=== PATIENT | male | born 1970 | race Caucasian/White ===

== ENCOUNTER → 2018-09-11 | Outpatient (CLI) | payer OTHER ==
[~2018-09-11] MED LIST: ASPI-496 PO; ROSU20TA PO; SUMA100T4 PO
== END | disposition home or self-care (01) ==
LOC: STAR 15:09
PROVIDERS: ATTEND Thoracic Surgery (Cardiothoracic Vascular Surgery)
DX: Z02.9 Encounter for administrative examinations, unspecified (principal)

== ENCOUNTER 2018-09-27 05:53 | Day surgery (SDC) | payer OTHER ==
[~2018-09-27] VITALS: Ht 182.9 cm; Wt 100.0 kg
[2018-09-27 06:38] VITALS: BP 138/93
[2018-09-27] MEDS ORDERED: LACTATED RINGERS 1,000 ML IV SCH ×2 (06:39→08:41)
[2018-09-27] MEDS ORDERED: BUPIVACAINE/PF-EPI 0.5% 1:200K ONE (06:47)
[2018-09-27] MEDS ORDERED: SCOPOLAMINE PATCH, 1.5MG PATCH.TD72 TD ONE (07:00)
[2018-09-27] MEDS ORDERED: ACETAMINOPHEN 500 MG TABLET PO ONE (07:00)
[2018-09-27] MEDS ORDERED: DIAZEPAM 5 MG TABLET PO ONE (07:00)
[2018-09-27] MEDS ORDERED: MIDAZOLAM 1 MG/ML, 2ML ONE (07:06)
[2018-09-27] MEDS ORDERED: FENTANYL PF 250 MCG/5ML ONE (07:06)
[2018-09-27] MEDS ORDERED: SUCCINYLCHOLINE 20 MG/ML, 10ML ONE (07:10)
[2018-09-27] MEDS ORDERED: LIDOCAINE-MPF 2% ,5ML ONE (07:12)
[2018-09-27] MEDS ORDERED: PROPOFOL 10 MG/ML, 20ML ONE ×2 (07:12→07:28)
[2018-09-27] MEDS ORDERED: CEFAZOLIN 1,000 MG ONE (07:14)
[2018-09-27] MEDS ORDERED: ONDANSETRON 2MG/ML, 2ML ONE ×2 (07:15→07:28)
[2018-09-27] MEDS ORDERED: DEXAMETHASONE 4 MG/ML, 5ML ONE (07:15)
[2018-09-27] MEDS ORDERED: KETOROLAC 30 MG/1 ML ONE (07:28)
[2018-09-27] MEDS ORDERED: ROCURONIUM 10 MG/ML,10ML ONE (07:28)
[2018-09-27] MEDS ORDERED: PROMETHAZINE 12.5 MG SUPP PR PRN (08:00)
[2018-09-27] MEDS ORDERED: HYDROmorphone 2 MG/ML, 1ML IVPush PRN ×2 (08:00→09:00)
[2018-09-27] MEDS ORDERED: ONDANSETRON ODT 8 MG PO PRN (08:00)
[2018-09-27] MEDS ORDERED: MIDAZOLAM 1 MG/ML, 2ML IV PRN (08:00)
[2018-09-27] MEDS ORDERED: ONDANSETRON 2MG/ML, 2ML IV PRN (08:00)
[2018-09-27] MEDS ORDERED: PROMETHAZINE 25 MG/ML, 1ML IV PRN (08:00)
[2018-09-27] MEDS ORDERED: MEPERIDINE/PF 25MG/0.5ML IVPush PRN (08:00)
[2018-09-27] MEDS ORDERED: DIAZEPAM 5 MG/ML, 2ML IVPush PRN (08:00)
[2018-09-27] MEDS ORDERED: LABETALOL 5MG/ML, 20ML IV PRN (08:00)
[2018-09-27] MEDS ORDERED: OXYcodone 5 MG/5 ML ORAL.SOL UDC PO PRN (08:00)
[2018-09-27] MEDS ORDERED: MORPHINE SULFATE 4 MG/ML, 1ML IVPush PRN (08:00)
[2018-09-27] MEDS ORDERED: FENTANYL PF 100 MCG/2ML IV PRN (08:00)
[2018-09-27] MEDS ORDERED: HALOPERIDOL 5 MG/ML IV PRN (08:00)
[2018-09-27] MEDS ORDERED: hydrALAzine 20 MG/ML, 1ML IV PRN (08:00)
[2018-09-27] MEDS ORDERED: ALBUTEROL SULFATE 2.5 MG/3 ML NPPB PRN (08:00)
[2018-09-27] MEDS ORDERED: EPHEDRINE 50 MG/ML, 1ML IVPush PRN (08:00)
[2018-09-27] MEDS ORDERED: NEOSTIGMINE 1 MG/ML, 10ML ONE (08:16)
[2018-09-27] MEDS ORDERED: GLYCOPYRROLATE 0.4 MG/2 ML, 2ML ONE (08:16)
[2018-09-27] MEDS ORDERED: KETOROLAC 30 MG/1 ML IVPush PRN (09:00)
[2018-09-27] MEDS ORDERED: HYDROcodone/APAP 5/325 TABLET PO PRN (09:00)
[2018-09-27] MEDS ORDERED: ONDANSETRON 2MG/ML, 2ML IVPush PRN (09:00)
[2018-09-27] MEDS ORDERED: OXYcodone 5 MG/5 ML ORAL.SOL UDC ONE (09:12)
[2018-09-27] MEDS ORDERED: FENTANYL PF 100 MCG/2ML ONE (09:12)
== END 2018-09-27 14:10 | disposition home or self-care (01) ==
LOC: OUT 05:53
PROVIDERS: ATTEND Thoracic Surgery (Cardiothoracic Vascular Surgery)
DX: K42.9 Umbilical hernia without obstruction or gangrene (principal); K40.91 Unilateral inguinal hernia, without obstruction or gangrene, recurrent; E78.00 Pure hypercholesterolemia, unspecified; G43.909 Migraine, unspecified, not intractable, without status migrainosus; Z98.890 Other specified postprocedural states; Z79.82 Long term (current) use of aspirin; Z88.8 Allergy status to other drugs, medicaments and biological substances
CPT/HCPCS: 49585; 49651; C1781; J0330; J0690; J1100; J1885; J2250; J2405; J2704; J2710; J3010; J3490; J7120